=== PATIENT | male | born 1970 | race Caucasian/White ===

== ENCOUNTER 2024-01-24 17:22 | Inpatient (IN) ==
--- NOTE | 2024-01-24 17:31 | Emergency Department Note ---
Impression & Plan Atrial fibrillation with RVR, Headache ED Provider Note NAME: FREDIS BILLY AGE: 53 SEX: M : 1970 ARRIVES VIA: Walk-In INFORMANT: Patient, ED PROVIDER(S): Rodolfo Urbina MD CHIEF COMPLAINT: Headache, palpitations MEDICAL DECISION MAKING: Patient presents due to concern for headache as well as possible erratic heart rate. IV was established and blood work was obtained. Initial EKG did show the patient is in A-fib with RVR. Patient was ordered IV Lopressor 5 mg every 5 minutes in hopes of lowering his rate to the 100s. I did message on-call radiologist Dr. Segovia as the patient had complained of potentially worst headache and concern for subarachnoid hemorrhage. He stated that a noncontrast CT would be sufficient does not require angiographies. Patient did have improvement in his heart rate into the low 100s. The patient was feeling well. Patient still declined any medication for his headache. White count of 12 hemoglobin slightly elevated at 18.6. He did receive IV fluids. Kidney function is unremarkable. Mild elevation in AST and ALT. TSH is elevated but normal free T4. Troponin negative. Chest x-ray does not show evidence of pneumonia or pneumothorax and CT of the head is negative. Heparin was ordered. I did speak the on-call hospital service after informing the patient of the findings and recommendations. Patient was comfortable with plan of care and the patient was admitted by [facility]. Critical Care: I have personally spent 42 minutes of critical care time in direct management of this patient. This includes bedside care, interpretation of diagnostic studies, and testing, discussion with consultants, patient, and family members, and other require inpatient management activities. This 42 minutes is in excess of all separately billable procedures. Discussion w/ other healthcare providers: Dr. Segovia with radiology Cherie Vicente PA-C with Dr. Blanca inpatient medicine [facility] Prior /Outside records reviewed: None Differential diagnosis: A-fib, migraine headache, tension headache, dehydration, meningitis, sinusitis, CO exposure, ICH, infection, tumor, sinus thrombosis as well as others were considered. Diagnostics, as interpreted by me: ECG: A-fib with RVR, ventricular rate of 145, normal QRS duration, normal axis. No ST elevations. Cardiac monitoring: An order was placed for continuous cardiac monitoring. The monitor shows a rate of 142 with irregularly irregular and tachycardic rhythm. Patient was placed on pulse oximetry Medical decision rules: CHADS2 vascular score Imaging studies: I informally interpreted the patient's chest x-ray does not show obvious pneumonia or pneumothorax with formal report to follow. HPI: Patient presents due to concern for headache and erratic irregular heartbeat. The patient states that he developed headache around 9 PM last evening and states that he does live with chronic headaches but it was one of the worst that he has ever experienced. Currently about a 3 out of 10 but peaked around 8 or 9 out of 10. The patient states that the pain was on the top of the head. Nonradiating. Patient denies any falls or trauma does not use any blood thinning medications. Patient denies any chest pains or shortness of breath. The patient does report that his took his pulse and thought that it was erratic and thus presented here for further evaluation and treatment. PAST MEDICAL HISTORY: See Below PAST SURGICAL HISTORY: See Below SOCIAL HISTORY: See Below HOME MEDICATIONS: See Below ALLERGIES: See Below VITALS: See Below PHYSICAL EXAMINATION: GENERAL: NAD, non-toxic. EYE EXAM: Normal conjunctiva. PERRL, no anisocoria and EOM's grossly intact w/o pain. OROPHARYNX: Moist mucus membranes, grossly normal dentition. NECK: Trachea midline, no stridor. No nuchal rigidity. LUNGS: Clear to auscultation. Normal chest wall mechanics. HEART: Tachycardic and irregularly irregular, no MRG. ABDOMEN: Abdomen soft, non-tender, no masses, no rebound or guarding. BACK: No CVA TTP. SKIN: No rashes and no bruising. UPPER EXTREMITIES: Upper extremities are grossly normal. LOWER EXTREMITIES: Grossly normal, no edema. NEURO EXAM: A&O x3, cranial nerves II-XII grossly intact, normal speech, moves all 4 extremities. [id number], no drift and no sensory deficits. Good [id number]. Past Med/Surg History Problem List (Updated 01/24/24 @ 22:44 by Rodolfo Urbina MD) NAFLD (nonalcoholic fatty liver disease) Ascending aorta enlargement Nonobstructive atherosclerosis of coronary artery Chronic headache CKD (chronic kidney disease), stage III Headache (Acute) Atrial fibrillation with RVR (Acute) Dyslipidemia Medical History Fatty liver Encounter for pre-operative examination Paresthesia CKD (chronic kidney disease) stage III Obesity Chronic back pain neck, no ROM limitations GERD (gastroesophageal reflux disease) Surgical History Neck mass LIPOMA REMOVED History of arthroscopy Family History Father Family history of diabetes mellitus Social History Smoking Status: Never smoker Second Hand Exposure: No; Do You Dip or Chew Tobacco: No; Tobacco Cessation Education Requested by Patient: No Hx Alcohol Use: No Hx Substance Use: No Preferred Language: Yakut Communication Ability: Effective Silk Screener Required: No Beliefs That Will Affect Care: None Current Living Situation: Spouse Current Living Situation Comment: lives at home w/ Other Information That Helps Us Care for You: No Feels Safe at Home: Yes Safety Concerns: Feels Safe At This Time Assistive Devices: None Allergies Allergies Allergy/AdvReac Type Severity Reaction Status Date / Time naproxen [From Aleve] Allergy Intermediate mouth/finger/toes Verified 01/24/24 17:42 tingling, watery eyes Penicillins Allergy Unknown Unknown, Verified 01/24/24 17:42 childhood reaction Home Meds Home Medications Medication Instructions Recorded Confirmed No Known Home Medications 01/24/24 01/24/24 Results & Data (ED) Vital Signs Vital Signs - 24 hr 01/24/24 17:24 01/24/24 17:42 01/24/24 17:49 Temperature 36.1 C L Temperature Source Temporal Artery Scan Pulse Rate 83 147 H 145 H Pulse Rate from SpO2 Sensor Respiratory Rate 20 Blood Pressure 178/110 H 174/114 H Blood Pressure Mean 132 Pulse Oximetry 95 Oxygen Delivery Method Room Air Sepsis Recent Fever Within 48 Hours No Sepsis New/Unexplained Change in Mental Status N/A Sepsis Action Taken by Nursing No Action Required 01/24/24 17:54 01/24/24 18:08 01/24/24 18:16 Temperature Temperature Source Pulse Rate 128 H 124 H 116 H Pulse Rate from SpO2 Sensor 84 106 H Respiratory Rate 14 25 H Blood Pressure 113/61 101/77 Blood Pressure Mean 82 Pulse Oximetry 94 95 Oxygen Delivery Method Room Air Sepsis Recent Fever Within 48 Hours Sepsis New/Unexplained Change in Mental Status Sepsis Action Taken by Nursing 01/24/24 18:38 Temperature Temperature Source Pulse Rate 119 H Pulse Rate from SpO2 Sensor Respiratory Rate Blood Pressure 117/75 Blood Pressure Mean Pulse Oximetry Oxygen Delivery Method Sepsis Recent Fever Within 48 Hours Sepsis New/Unexplained Change in Mental Status Sepsis Action Taken by Retirement Medications Current Medication List: was personally reviewed by me Laboratory Data Attestation: I reviewed the patient's lab results. 01/24/24 17:38 01/24/24 17:38 Lab Results 01/24/24 Range/Units 17:38 WBC 12.21 H (4.8-10.8) K/ul RBC 6.54 H (4.70-6.10) M/uL Hgb 18.6 H (14.0-18.0) g/dl Hct 56.4 H (42.0-52.0) % MCV 86.2 (80.0-100.0) fL MCH 28.4 (25.0-34.0) pg MCHC 33.0 (32.0-36.0) g/dL RDW Std Deviation 38.4 (36.4-46.3) fL RDW Coeff of Leatha 12.4 (11.5-14.5) % Plt Count 250 (130-400) K/uL MPV 11.0 (9.4-12.4) fL Immature Gran % (Auto) 0.3 % Neut % (Auto) 56.7 % Lymph % (Auto) 32.8 % Rosebud % (Auto) 8.9 % Eos % (Auto) 0.8 % Baso % (Auto) 0.5 % Neut # (Auto) 6.92 H (1.40-6.50) K/uL Lymph # (Auto) 4.00 H (1.20-3.40) K/uL Rosebud # (Auto) 1.09 H (0.11-0.59) K/uL Eos # (Auto) 0.10 (0.00-0.50) K/uL Baso # (Auto) 0.06 (0.00-0.20) K/uL Immature Gran # (Auto) 0.04 (0.01-0.20) K/uL PT 11.2 (9.0-12.0) Seconds INR 1.0 (0.9-1.1) APTT 29 (21-31) Seconds PTT Ratio 1.1 Sodium 138 (136-145) mmol/L Potassium 3.8 (3.5-5.1) mmol/L Chloride 100 (98-107) mmol/L Carbon Dioxide 31 (21-32) mmol/L Anion Gap 7 (3-11) BUN 11 (6-23) mg/dl Creatinine 1.38 (0.6-1.4) mg/dl Est Cr Clr Drug Dosing 72.0 ml/min Est GFR ( Amer) 67.2 ml/min Est GFR (Non-Af Amer) 58.0 ml/min BUN/Creatinine Ratio 8.0 L (10-20) Glucose 96 (70-99(Fasting)) mg/dl Calcium 9.7 (8.6-10.3) mg/dl Magnesium 1.8 (1.7-2.4) mg/dl Total Bilirubin 0.8 (0.2-1.0) mg/dl AST 52 H (13-39) U/L ALT 128 H (7-52) U/L Alkaline Phosphatase 87 (34-104) U/L Troponin I High Sens 10.7 (0-20) pg/ml Total Protein 8.2 (6.0-8.3) gm/dl Albumin 4.7 (3.4-5.0) gm/dl Globulin 3.5 (2.5-4.0) gm/dl Albumin/Globulin Ratio 1.3 (0.9-2) TSH 5.216 H (0.300-4.500) uIu/ml Free T4 1.01 (0.61-1.60) ng/dl Administered Medications Heparin Sodium/Dextrose (Heparin Sodium/Dextrose) 25,000 units in 500 mls @ 20 mls/hr IV .Q24H SHALINI; Protocol Stop: 02/23/24 19:14 Last Admin: 01/24/24 19:53 Dose: 1,000 units/hr, 20 mls/hr Documented By: EMB Co-signed By: JENNY Sodium Chloride (Nss) 1,000 mls @ 125 mls/hr IV .Q8H SHALINI Stop: 01/25/24 14:06 Last Admin: 01/24/24 22:30 Dose: 125 mls/hr Documented By: MPC Discontinued Medications Heparin Sodium/Dextrose (Heparin Iv Adult Wt-Based Low-Dose *No* Initial Bolus Protocol) 1 each IV ONE STA; Protocol Stop: 01/24/24 19:01 Last Admin: 01/24/24 20:48 Dose: Not Given Documented By: MAR Sodium Chloride (Nss) 500 mls @ 999 mls/hr IV .Q31M STA Stop: 01/24/24 18:20 Last Infusion: 01/24/24 18:32 Dose: Infused Documented By: Admin: 01/24/24 18:06 Dose: 999 mls/hr Documented By: LISAK Magnesium Sulfate/Dextrose (Magnesium Sulfate / D5w) 1 gm in 100 mls @ 50 mls/hr IV ONE ONE Stop: 01/24/24 21:10 Last Infusion: 01/24/24 22:08 Dose: Infused Documented By: Admin: 01/24/24 19:44 Dose: 50 mls/hr Documented By: EMB Sodium Chloride (Nss) 1,000 mls @ 999 mls/hr IV .Q1H1M ONE Stop: 01/24/24 20:32 Last Infusion: 01/24/24 20:48 Dose: Infused Documented By: Admin: 01/24/24 19:44 Dose: 999 mls/hr Documented By: EMB Metoprolol Tartrate (Metoprolol Tartrate 1 Mg/Ml Vial) Confirm Administered Dose 5 mg IV .STK-MED ONE Stop: 01/24/24 17:48 Last Admin: 01/24/24 17:49 Dose: 5 mg Documented By: LISAK Metoprolol Tartrate (Metoprolol Tartrate 1 Mg/Ml Vial) 5 mg IV Q5M PRN PRN Reason: Tachycardia Stop: 02/23/24 17:49 Last Admin: 01/24/24 18:38 Dose: 5 mg Documented By: Admin: 01/24/24 18:08 Dose: 5 mg Documented By: LISAK Potassium Chloride (Potassium Chloride Crtab 20 Meq Tabcr) 40 meq PO ONE ONE Stop: 01/24/24 19:12 Last Admin: 01/24/24 19:44 Dose: 40 meq Documented By: EMB Imaging Data Radiologist's Impression: Chest X-Ray 01/24/24 17:50 SINGLE VIEW CHEST CLINICAL HISTORY: Dysrhythmia FINDINGS: An AP, portable, upright chest radiograph is compared to study dated 04/01/2020 and correlated with chest CT dated 04/26/2020. The cardiomediastinal silhouette is top normal for projection. The lungs and pleural spaces are clear. No pneumothorax is seen. The bony thorax is grossly intact. IMPRESSION: No active disease in the chest. ACT 112: Negative or not required by law. Electronically signed by: Glenn Segovia M.D. 01/24/2024 6:[address] 01/24/24 17:50 CT SCAN OF THE BRAIN WITHOUT IV CONTRAST CLINICAL HISTORY: Headache. COMPARISON STUDY: CT of the brain dated 12/25/2019. TECHNIQUE: Unenhanced axial CT scan of the brain is performed from the vertex to the skull base. A dose lowering technique was utilized adhering to the principles of ALARA. CT DOSE: 547.75 mGy.cm FINDINGS: Brain parenchyma: The brain parenchyma is normal in appearance. There is no hemorrhage, mass effect, or evidence of acute territorial ischemia by CT criteria. Ashby-white matter differentiation is preserved. No extra-axial fluid collection is seen. Ventricles, sulci, cisterns: Normal in configuration. Intracranial vasculature: There is atherosclerotic calcification of the cavernous carotid arteries. Calvarium: Unremarkable. Soft tissues: Soft tissue thickening in the occipital scalp is similar to the 2020 examination. Sinuses and mastoids: Trace mucosal thickening is noted in the right sphenoid sinus. The remaining visualized paranasal sinuses are clear. The mastoid air cells are well pneumatized. Orbits: The bony orbits are grossly intact. IMPRESSION: There is no hemorrhage, mass effect, or evidence of acute territorial ischemia by CT criteria. ACT 112: Negative or not required by law. Electronically signed by: Glenn Segovia M.D. 01/24/2024 6:05 PM Discharge Plan Visit Data Chief Complaint: Headache Stated Complaint: HEADACHE, NAUSEA, IRRATIC PULSE ED Provider: Rodolfo Urbina Discharge Problem: Atrial fibrillation with RVR, Headache Patient Disposition: Admitted As Inpatient Discharge Instructions Interventions: ED Discharge Assessment Last Done: 01/24/24 21:28 Discharge Problem: Headache Qualifiers: Headache type: unspecified
[2024-01-24] MEDS: METOPROLOL TARTRATE 1 MG/ML VIAL IV ONE (17:49)
[2024-01-24] MEDS: SODIUM CHLORIDE 0.9% 500 ML IV STA (18:06)
[2024-01-24 18:07] LABS: Basophils # (auto) 0.06 K/uL (0.00-0.20); Basophils % (auto) 0.5 %; Eosinophils % (auto) 0.8 %; Hematocrit (blood only) 56.4 % (42.0-52.0); Hemoglobin 18.6 g/dl (14.0-18.0); Immature Granulocytes # (auto) 0.04 K/uL (0.01-0.20); Immature Granulocytes % (auto) 0.3 %; Lymphocytes % (auto) 32.8 %; Mean Corpuscular Hemoglobin 28.4 pg (25.0-34.0); Mean Corpuscular Volume 86.2 fL (80.0-100.0); Monocytes # (auto) 1.09 K/uL (0.11-0.59); Monocytes % (auto) 8.9 %; Neutrophils # (auto) 6.92 K/uL (1.40-6.50); Neutrophils % (auto) 56.7 %; Platelet Count 250 K/uL (130-400); RDW Coefficient of Variation 12.4 % (11.5-14.5); RDW Standard Deviation 38.4 fL (36.4-46.3); Red Blood Count 6.54 M/uL (4.70-6.10); White Blood Count 12.21 K/ul (4.8-10.8)
--- NOTE | 2024-01-24 18:07 | CT Scan Report ---
CT SCAN OF THE BRAIN WITHOUT IV CONTRAST CLINICAL HISTORY: Headache. COMPARISON STUDY: CT of the brain dated 12/25/2019. TECHNIQUE: Unenhanced axial CT scan of the brain is performed from the vertex to the skull base. A d ose lowering technique was utilized adhering to the principles of ALARA. CT DOSE: 547.75 mGy.cm FINDINGS: Brain parenchyma: The brain parenchyma is normal in appearance. There is no hemorrhage, mass effect, or evidence of acute territorial ischemia by CT criteria. Ashby-white matter differentiation is preser jennifer. No extra-axial fluid collection is seen. Ventricles, sulci, cisterns: Normal in configuration. Intracranial vasculature: There is atherosclerotic calcification of the cavernous carotid arteries. Calvarium: Unremarkable. Soft tissues: Soft tissue thickening in the occipital scalp is similar to the 2020 examination. Sinuses and mastoids: Trace mucosal thickening is noted in the right sphenoid sinus. The remaining vi sualized paranasal sinuses are clear. The mastoid air cells are well pneumatized. Orbits: The bony orbits are grossly intact. IMPRESSION: There is no hemorrhage, mass effect, or evidence of acute territorial ischemia by CT augie parker. ACT 112: Negative or not required by law. Electronically signed by: Glenn Segovia M.D. 01/24/2024 6:05 PM
[2024-01-24] MEDS: METOPROLOL TARTRATE 1 MG/ML VIAL IV PRN (18:08)
--- NOTE | 2024-01-24 18:21 | XRay Report ---
SINGLE VIEW CHEST CLINICAL HISTORY: Dysrhythmia FINDINGS: An AP, portable, upright chest radiograph is compared to study dated 04/01/2020 and correlat ed with chest CT dated 04/26/2020. The cardiomediastinal silhouette is top normal for projection. The lungs and pleural spaces are clear. No pneumothorax is seen. The bony thorax is grossly intact. IMPRESSION: No active disease in the chest. ACT 112: Negative or not required by law. Electronically signed by: Glenn Segovia M.D. 01/24/2024 6:19 PM
[2024-01-24 18:25] LABS: Albumin Globulin Ratio 1.3 (0.9-2); Albumin Level 4.7 gm/dl (3.4-5.0); Bilirubin,Total 0.8 mg/dl (0.2-1.0); Calcium 9.7 mg/dl (8.6-10.3); Est GFR (African American) 67.2 ml/min; Globulin 3.5 gm/dl (2.5-4.0); Magnesium 1.8 mg/dl (1.7-2.4); Potassium 3.8 mmol/L (3.5-5.1); Total Protein 8.2 gm/dl (6.0-8.3)
[2024-01-24 18:31] LABS: Troponin I High Sensitivity 10.7 pg/ml (0-20)
[2024-01-24 18:40] LABS: Thyroid Stimulating Hormone 5.216 uIu/ml (0.300-4.500)
[2024-01-24 18:57] LABS: Partial Thromboplastin Ratio 1.1; Partial Thromboplastin Time 29 Seconds (21-31); Prothrombin Time 11.2 Seconds (9.0-12.0)
[2024-01-24 19:16] LABS: T4 Free Thyroxine 1.01 ng/dl (0.61-1.60)
--- NOTE | 2024-01-24 19:18 | History & Physical Report ---
Date of Service January 24, 2024 Assessment & Plan (1) Atrial fibrillation with RVR: Plan: Patient is 53 year old male with PMH dyslipidemia, non-obstructive CAD, NAFLD, enlarged ascending thoracic aorta last measured 4.[address] imaging, CKD III presented to ER with c/o ESTRADA and palpitations since last night. EKG: atrial fibrillation RVR nonspecific ST changes Troponin: negative. TSH: 5.2. WBC: 12, H/H: 18.6/56 CXR: no infiltrate In ER patient afebrile, P: 147, R: 20, BP 178/110, 95% on room air. In ER given 500ml NSS, 3 doses (total 15mg metoprolol tartrate IV) with repeat P: 114, now SBPs 90's-100's Patient states feeling less palpitations now, is A&O x 3 and jovial Give additional 1L NSS now IV heparin started Continue IV heparin Monitor on telemetry Start metoprolol tartrate po Echo NPO midnight Cardiology consult CBC, BMP in am (2) Headache: Plan: History chronic ESTRADA's Followed with neurology in past and was diagnosed with primary exertional ESTRADA and migraine ESTRADA and advised to avoid medication overuse and attempt lifestyle modifications Last night describes ESTRADA worse than his typical daily ESTRADA Currently rates 2/10 on pain scale In ER CT head without acute intracranial abnormality (3) CKD (chronic kidney disease), stage III: Plan: Cr: 1.38, GFR 58. ( 12/26/2020: Cr: 1.4, GFR: 59) Monitor renal functions (4) Dyslipidemia: Plan: History dyslipidemia. Prior chose lifestyle modification attempts 12/26/2020: Triglycerides: 213, total cholesterol: 241, LDL: 160, HDL: 38 Lipid panel in am (5) Nonobstructive atherosclerosis of coronary artery: (6) Ascending aorta enlargement: Plan: Cardiac CT 05/10/2020: In the proximal LAD there is a small area of focal calcified plaque resulting in no significant luminal stenosis. In the mid LAD, there is an area of focal calcified plaque resulting in luminal stenosis of 20%. The left main, circumflex, and right coronary arteries are normal without evidence of atherosclerotic plaque or luminal stenosis. The right ventricular chamber size is dilated to a [id number] degree on qualitative assessment. The interatrial septum is intact without evidence of atrial septal defect. The aortic root and proximal ascending aorta are mildly dilated. Measurements:Aortic root at the level of the sinus of Valsalva: 42 x 41 x 39 mm. Aorta at the level the sinotubular junction: 33 x 37 mm. (7) NAFLD (nonalcoholic fatty liver disease): Plan: AST: 52, ALT: 128, Alk Phos: 87. (12/26/2020: AST: 52, ALT: 127, alk phos: 75, T. bili: 0.6) 08/03/14 abd: hepatic steatosis DVT Prophylaxis On IV Heparin Admit PCU Full Code as per discussion with pt Previously followed with [facility] PCP's, hasn't been seen for couple years. Pt was seen and care coordinated with Dr Blanca. See addendum I spent a total of 65 minutes reviewing notes, outpatient records, labs, medication, coordinating, documenting and providing care for this patient excluding time spent in the performance of separately billed services. History of Present Illness Chief Complaint: ESTRADA, palpitations Primary Care Provider: NO PCP Patient is 53 year old male with PMH dyslipidemia, non-obstructive CAD, NAFLD, enlarged ascending thoracic aorta last measured 4.[address] imaging, CKD III presented to ER with c/o ESTRADA and palpitations since last night. History obtai stacy from patient and patient's and outpatient chart review. Patient states last night around 19:00 started with ESTRADA. He had some nausea and dry heaving last night. Last night felt ESTRADA worse than his usual ESTRADA's but states he didn't think much of it as he will sometimes have more severe ESTRADA's. Has history recurrent ESTRADA's for past 4 years. He states has almost daily ESTRADA that he describes as mild usually. Doesn't take anything for them. Sometimes has floaters. Sometimes he has nausea with the ESTRADA's. Had followed up with neurology in past with testing and was diagnosed with primary exertional ESTRADA and migraine ESTRADA. 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 He denies neck pain. Patient reports when went to bed last night he thought he could feel his heart beating but didn't really bother him much. Today ESTRADA continued and he felt some palpitations and his took his pulse and noticed it was irregular so came to ER for evaluation. Had semi solid BM last night. States has soda or tea daily. But yesterday had 5 caffeinated drinks. Denies ETOH use. Denies dizziness, lightheadedness, syncope, CP, SOB, neck pain, fever/chills, diaphoresis, vomiting, syncope, vision changes, CP, SOB, orthopnea, cough, sore throat, rhinorrhea, abdominal pain, paresthesias, weakness, extremity edema, rashes, urinary symptoms. Allergies Allergy/AdvReac Type Severity Reaction Status Date / Time naproxen [From Aleve] Allergy Intermediate mouth/finger/toes Verified 01/24/24 17:42 tingling, watery eyes Penicillins Allergy Unknown Unknown, Verified 01/24/24 17:42 childhood reaction Home Medications Medication Instructions Recorded Confirmed Type No Known Home Medications 01/24/24 01/24/24 History Past Med/Surg History Problem List (Updated 01/24/24 @ 19:59 by Cherie Lorenzo PA-C) NAFLD (nonalcoholic fatty liver disease) Ascending aorta enlargement Nonobstructive atherosclerosis of coronary artery Chronic headache CKD (chronic kidney disease), stage III Headache Atrial fibrillation with RVR Dyslipidemia Medical History Fatty liver Encounter for pre-operative examination Paresthesia CKD (chronic kidney disease) stage III Obesity Chronic back pain neck, no ROM limitations GERD (gastroesophageal reflux disease) Surgical History Neck mass LIPOMA REMOVED History of arthroscopy Family History Father Family history of diabetes mellitus Social History Smoking Status: Never smoker Second Hand Exposure: Yes (MOTHER SMOKED); Do You Dip or Chew Tobacco: No; Hx Alcohol Use: No Hx Substance Use: No Preferred Language: Serbian Communication Ability: Effective Re Recording Mixer Required: No Beliefs That Will Affect Care: None Current Living Situation: Spouse and Family Feels Safe at Home: Yes Assistive Devices: Glasses Review of Systems Review of Systems: All systems reviewed & are unremarkable except as noted in HPI & below Physical Exam Physical Exam: PE per Dr Blanca Results & Data Results & Data Vital Signs (Past 12 Hours) Vital Signs Temp Pulse Resp BP Pulse Ox O2 Del Method 01/24/24 18:38 119 H 117/75 01/24/24 18:16 116 H 25 H 101/77 95 Room Air 01/24/24 18:08 124 H 113/61 01/24/24 17:54 128 H 14 94 01/24/24 17:49 145 H 174/114 H 01/24/24 17:42 147 H 01/24/24 17:24 36.1 C L 83 20 178/110 H 95 Room Air Laboratory Results Short CBC 01/24/24 Range/Units 17:38 WBC 12.21 H (4.8-10.8) K/ul Hgb 18.6 H (14.0-18.0) g/dl Hct 56.4 H (42.0-52.0) % Plt Count 250 (130-400) K/uL BMP 01/24/24 17:38 Sodium 138 Potassium 3.8 Chloride 100 Carbon Dioxide 31 BUN 11 Creatinine 1.38 Glucose 96 Calcium 9.7 Liver Function 01/24/24 Range/Units 17:38 Total Bilirubin 0.8 (0.2-1.0) mg/dl AST 52 H (13-39) U/L ALT 128 H (7-52) U/L Alkaline Phosphatase 87 (34-104) U/L Albumin 4.7 (3.4-5.0) gm/dl Diagnostic Findings Chest X-Ray 01/24/24 17:50 SINGLE VIEW CHEST CLINICAL HISTORY: Dysrhythmia FINDINGS: An AP, portable, upright chest radiograph is compared to study dated 04/01/2020 and correlated with chest CT dated 04/26/2020. The cardiomediastinal silhouette is top normal for projection. The lungs and pleural spaces are clear. No pneumothorax is seen. The bony thorax is grossly intact. IMPRESSION: No active disease in the chest. ACT 112: Negative or not required by law. Electronically signed by: Glenn Segovia M.D. 01/24/2024 6:[address] 01/24/24 17:50 CT SCAN OF THE BRAIN WITHOUT IV CONTRAST CLINICAL HISTORY: Headache. COMPARISON STUDY: CT of the brain dated 12/25/2019. TECHNIQUE: Unenhanced axial CT scan of the brain is performed from the vertex to the skull base. A dose lowering technique was utilized adhering to the principles of ALARA. CT DOSE: 547.75 mGy.cm FINDINGS: Brain parenchyma: The brain parenchyma is normal in appearance. There is no hemorrhage, mass effect, or evidence of acute territorial ischemia by CT criteria. Ashby-white matter differentiation is preserved. No extra-axial fluid collection is seen. Ventricles, sulci, cisterns: Normal in configuration. Intracranial vasculature: There is atherosclerotic calcification of the cavernous carotid arteries. Calvarium: Unremarkable. Soft tissues: Soft tissue thickening in the occipital scalp is similar to the 2020 examination. Sinuses and mastoids: Trace mucosal thickening is noted in the right sphenoid sinus. The remaining visualized paranasal sinuses are clear. The mastoid air cells are well pneumatized. Orbits: The bony orbits are grossly intact. IMPRESSION: There is no hemorrhage, mass effect, or evidence of acute territorial ischemia by CT criteria. ACT 112: Negative or not required by law. Electronically signed by: Glenn Segovia M.D. 01/24/2024 6:05 PM Supervising Physician Co-Signing Physician Notes Patient is a 53-year-old male with history of dyslipidemia, GERD, CKD stage III, nonalcoholic fatty liver disease, mild coronary artery disease, aortic root enlargement as per record who currently is not on any home medications presents with history of chronic headache which was worse yesterday evening associated with dry heaving and palpitations. 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 He started to notice having palpitations yesterday night which have been persistent and was noted to have irregular rhythm by his family and so came to ED today for further evaluation. Patient denies any chest pain, vomiting, dizziness, shortness of breath, diarrhea, abdominal pain, fever, chills. He was found to be in A-fib RVR, hypertensive urgency while in ED. He denies having irregular heart rhythms in the past. He also denies any smoking, alcohol, but admits to have caffeine drinks on a daily basis. I personally reviewed blood work and imaging studies. CT head, chest x-ray showed no acute process. TSH is mildly elevated, free T4 is normal. Noted WBC 12.2 K, hemoconcentration with hemoglobin 18.6, HCT 56.4. Physical Exam: Vitals signs as noted above General Appearance: Well-built, nourished, no apparent distress Head: normocephalic, Atraumatic Eyes: normal inspection, EOMI Neck: supple, Trachea midline, no neck rigidity Respiratory/Chest: Normal breath sounds, CTA, No accessory muscle use Cardiovascular: Irregularly irregular, tachycardia, No murmur Abdomen/GI:Soft, Non tender, protuberant, bowel sounds present Extremities/Musculoskeletal:normal inspection, trace pedal edema Neurologic/Psych:AAOX3, grossly no focal neurological deficits Skin: normal color, warm A-fib RVR Hypertensive urgency--situational Abnormal LFTs Chronic headache likely migraine Abnormal thyroid function test (elevated TSH, normal free T4) Clinically dehydrated Started on IV fluids, IV heparin Replete electrolytes to keep potassium>4, magnesium>2 Start on metoprolol titrate 12.5 mg every 6 hours, IV Lopressor as needed Obtain resting echo, consulted cardiology Monitor LFTs Will need repeat thyroid function test as outpatient N.p.o. after midnight Monitor blood pressure, adjust medications as needed I personally interviewed and examined at bedside. Patient's care is coordinated with Cherie Lorenzo PA-C. I have reviewed the advanced practitioner's documentation, and I agree with plan of care. Please refer to the documentation above for details of patient's presentation and for discussion of other issues. I spent a total [id number] coordinating, documenting, and providing care for this patient excluding time spent in the performance of separately billed services.
[2024-01-24] MEDS: SODIUM CHLORIDE 0.9% 1,000 ML IV ONE (19:44)
[2024-01-24] MEDS: MAGNESIUM SULFATE / D5W 1 GM/100 ML BAG IV ONE (19:44)
[2024-01-24] MEDS: POTASSIUM CHLORIDE CRTAB 20 MEQ TABCR PO ONE (19:44)
[2024-01-24] MEDS: HEPARIN SODIUM/DEXTROSE 25,000 UNITS/500 ML BAG IV SCH (19:53)
[2024-01-24] MEDS: Heparin IV Adult Wt-Based Low-Dose *NO* INITIAL Bolus Protocol IV STA (20:48)
[2024-01-24] MEDS ORDERED: ACETAMINOPHEN 325 MG TAB PO PRN (22:07)
[2024-01-24] MEDS ORDERED: METOPROLOL TARTRATE 1 MG/ML VIAL IV PRN (22:07)
[2024-01-24] MEDS ORDERED: POLYETHYLENE (MIRALAX) 17 GM PACK PO PRN (22:07)
[2024-01-24] MEDS: SODIUM CHLORIDE 0.9% 1,000 ML IV SCH (22:30)
[2024-01-24] MEDS: METOPROLOL TARTRATE 25 MG TAB PO SCH (23:16)
[2024-01-24] MEDS: PANTOprazole 40 MG TAB PO SCH (23:16)
[2024-01-25 02:33] LABS: Albumin Globulin Ratio 1.4 (0.9-2); Albumin Level 3.7 gm/dl (3.4-5.0); BUN Creatinine Ratio 10.3 (10-20); Bilirubin,Total 0.7 mg/dl (0.2-1.0); Calcium 8.9 mg/dl (8.6-10.3); Chol HDL Ratio 5.6 (0-5); Creatinine Clr Calc Pharmacy 101.3 ml/min; Est GFR (African American) 82.9 ml/min; Est GFR (Non-African American) 71.5 ml/min; Globulin 2.6 gm/dl (2.5-4.0); Total Protein 6.3 gm/dl (6.0-8.3)
[2024-01-25 02:39] LABS: Hematocrit (blood only) 48.6 % (42.0-52.0); Hemoglobin 16.6 g/dl (14.0-18.0); Mean Corpuscular Hemoglobin 28.8 pg (25.0-34.0); Mean Corpuscular Hgb Conc 34.2 g/dL (32.0-36.0); Mean Corpuscular Volume 84.4 fL (80.0-100.0); Mean Platelet Volume 11.6 fL (9.4-12.4); Platelet Count 196 K/uL (130-400); RDW Coefficient of Variation 12.2 % (11.5-14.5); RDW Standard Deviation 37.1 fL (36.4-46.3); Red Blood Count 5.76 M/uL (4.70-6.10); White Blood Count 9.92 K/ul (4.8-10.8)
[2024-01-25 02:44] LABS: ANTI-Xa, UFH(UnfractionatedHep 0.14 IU/ml (0.3-0.7)
[2024-01-25] MEDS: HEPARIN SOD (PORCINE) 1000 UNIT/ML IV ONE (03:58)
--- NOTE | 2024-01-25 07:42 | Electrocardiogram Report ---
Test Reason : Blood Pressure : */* mmHG Vent. Rate : 145 BPM Atrial Rate : * BPM P-R Int : * ms QRS Dur : 96 ms QT Int : 312 ms P-R-T Axes : * 8 132 degrees QTcB Int : 484 ms Atrial fibrillation with rapid ventricular response Nonspecific ST and T wave abnormality Abnormal ECG When compared with ECG of 01-Apr-2020 21:23, Atrial fibrillation has replaced Sinus rhythm Vent. rate has increased by 52 bpm Non-specific change in ST segment in Inferior leads ST now depressed in Lateral leads Confirmed by Jenna Cota (Sonny) on 01/25/2024 7:42:10 AM Referred By: REFERRED SELF Confirmed By: Jenna Cota
--- NOTE | 2024-01-25 08:53 | Cardiology Consultation ---
Date of Consultation January 25, 2024 Assessment & Plan (1) Atrial fibrillation with RVR: (2) Hypertensive urgency: (3) Ascending aorta enlargement: Plan Patient admitted with palpitations, HTN diagnosed with Afib RVR. Duration unknown. 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 HS troponin unremarkable. Echo with mild global hypokinesis with LVEF 50-55% (afib RVR during echo) Started on IV heparin for anticoagulation. [id number] score of 1-2 (HTN and mild CAD/aortic atherosclerosis). Will need transitioned to Eliquis 5 mg BID prior to discharge Metoprolol initiated upon arrival. Rates remain elevated this morning. Metoprolol succinate 50 mg twice perday Ongoing rate control strategy recommended for now and after 4 weeks of anticoagulation can attempt CV. However, if rates fail to improve today with titration of metoprolol, consider DARA/CV in the morning. Will make NPO BP trending downward with BB. May need additional antihypertensive therapy with HUY/ARB. Monitor. Further recommendations pending further discussion and evaluation with Dr. Thurston. Case discussed with Dr. Thurston I spent a total of 60 minutes on the date of service in preparation, delivery, and documentation of the care provided to this patient, excluding any time spent in the performance of separately billed services. Ning Farrell PA-C Department of Cardiology, [facility] This chart was completed in part utilizing Speech Voice Recognition Software. Grammatical errors, random word insertions, pronoun errors, and incomplete sentences are an occasional consequence of this system due to software limitations, ambient noise, and hardware issues. Any formal questions or c oncerns about the content, text, or information contained within the body of this dictation should be directly addressed to the provider for clarification. Supervising Physician Co-Signing Physician Notes Patient was seen and personally examined. Full assessment and plan as outlined by advanced provider above. Care and management personally discussed and endorsed Patient with newly discovered atrial fibrillation after presenting to the emergency room with headache. Significant hypertension noted as well as atrial fibrillation with elevated ventricular response rate Duration uncertain but suspect extended duration. Patient unable to sense atrial fibrillation at this time despite elevated rates Echocardiogram with low normal LV function Plan: Change metoprolol to tartrate to metoprolol succinate 50 mg twice per day Okay to transition from heparin to Eliquis We will keep n.p.o. after midnight consider DARA cardioversion if rates not slowing Discussed atrial fibrillation in detail with patient and courses of management Will likely add ARB given aortic root enlargement and hypertension once blood pressure tolerance of increased beta-anthony assured I spent a total of 30 minutes on the date of service in preparation, delivery, and documentation of the care provided to this patient, excluding any time spent in the performance of separately billed services. History of Present Illness Reason for Consultation: Afib RVR Requesting Physician: Bel Houston Attending Physician: Dr. Thurston History of Present Illness Patient is a 53 year old male who presented to [facility] with complaints of palpitations. Found to have atrial fibrillation RVR. Patient reports not feeling well on Thursday. He had a severe headache (which is a chronic issue) and his BP was elevated. He also felt intermittent "fluttering" in his chest but denied chest pain or unusual dyspnea. No visual changes. Thursday he awakened with similar symptoms. He had to go to [place] and when he returned he had ongoing headache and HR was once again elevated. He came to the ER for evaluation. Found to have afib RVR with rates in the 120's. Started on IV heparin. HS troponin negative. Head CT was unremarkable. Started on metoprolol 12.5 mg q 6 hours. BP trending down overnight but heart rates remained elevated. Metoprolol increased this morning to 25 mg q 6 hours. At time of consult, patient resting in bed without acute complaints. Only has palpitations with ambulation and HR trends upward. No chest pain, dizziness, SOB. No history of significant anemia, GI bleeding. He had an echo this morning demonstrating mild global hypokinesis with LVEF 50- 55%. Mild LA enlargement. No significant valvular disease. Mildly enlarged aortic root. History includes: 1. Enlarged RV per past echo in 2020 - Negative PE work up, Only mild WADE 2. HTN - situational (not treated) 3. Mild non obstructive CAD per cardiac CT in 2020 4. Dyslipidemia (not treated) 5. NAFLD 6. Chronic migraine headaches - previous extensive work up without pathology. Thought to be related to prior football related concussions? Allergies Allergy/AdvReac Type Severity Reaction Status Date / Time naproxen [From Aleve] Allergy Intermediate mouth/finger/toes Verified 01/24/24 17:42 tingling, watery eyes Penicillins Allergy Unknown Unknown, Verified 01/24/24 17:42 childhood reaction Home Medications Medication Instructions Recorded Confirmed Type omeprazole 20 mg PO HS 01/24/24 01/24/24 History Patient History Medical History Fatty liver Encounter for pre-operative examination Paresthesia CKD (chronic kidney disease) stage III Obesity Chronic back pain neck, no ROM limitations GERD (gastroesophageal reflux disease) Surgical History Neck mass LIPOMA REMOVED History of arthroscopy Family History Father Family history of diabetes mellitus Social History Smoking Status: Never smoker Second Hand Exposure: No; Do You Dip or Chew Tobacco: No; Tobacco Cessation Education Requested by Patient: No Hx Alcohol Use: No Hx Substance Use: No Preferred Language: Guyanese Communication Ability: Effective Farm Instructor Required: No Beliefs That Will Affect Care: None Current Living Situation: Spouse Current Living Situation Comment: lives at home w/ Other Information That Helps Us Care for You: No Feels Safe at Home: Yes Safety Concerns: Feels Safe At This Time Assistive Devices: None Review of Systems Review of Systems: All systems reviewed & are unremarkable except as noted in HPI & below Physical Exam Constitutional: WD/WN, vitals as above well developed and + obese; no acute distress Neck: + thick neck Respiratory: normal respiratory effort Auscultation: no crackles, no rales and no rhonchi Cardiovascular: Rate/Rhythm: + tachycardic and + irregularly irregular Heart Sounds: no murmur Vessels: no JVD Extremities: no edema Gastrointestinal (Abdomen): normal bowel sounds, soft, nontender, no hepatosplenomegaly Skin: no rashes, warm and dry Psychiatric: A+Ox3, euthymic affect Results & Data Vital Signs (Past 12 Hours) Vital Signs Temp Pulse Pulse Resp BP Pulse Ox O2 Del Method 01/25/24 07:54 125 H 01/25/24 07:44 36.7 C 83 18 153/89 H 93 Room Air 01/25/24 03:10 36.8 C 63 20 110/80 93 Room Air 01/24/24 22:42 112 H 01/24/24 22:15 36.6 C 107 H 18 149/98 H 96 Room Air 01/24/24 21:20 120 H 18 115/95 96 Room Air Laboratory Results Cardiac Enzymes 01/24/24 01/25/24 Range/Units 17:38 01:51 AST 52 H 39 (13-39) U/L Troponin I High Sens 10.7 (0-20) pg/ml Coagulation 01/24/24 Range/Units 17:38 PT 11.2 (9.0-12.0) Seconds APTT 29 (21-31) Seconds Lipids 01/25/24 Range/Units 01:51 Triglycerides 195 H (0-150) mg/dl Cholesterol 222 H (0-200) mg/dl HDL Cholesterol 40 mg/dl Cholesterol/HDL Ratio 5.6 H (0-5) CBC 01/24/24 01/25/24 Range/Units 17:38 01:51 WBC 12.21 H 9.92 (4.8-10.8) K/ul RBC 6.54 H 5.76 (4.70-6.10) M/uL Hgb 18.6 H 16.6 (14.0-18.0) g/dl Hct 56.4 H 48.6 (42.0-52.0) % Plt Count 250 196 (130-400) K/uL Neut # (Auto) 6.92 H (1.40-6.50) K/uL Lymph # (Auto) 4.00 H (1.20-3.40) K/uL [place] # (Auto) 1.09 H (0.11-0.59) K/uL Eos # (Auto) 0.10 (0.00-0.50) K/uL Baso # (Auto) 0.06 (0.00-0.20) K/uL Comprehensive Metabolic Panel 01/24/24 01/25/24 Range/Units 17:38 01:51 Sodium 138 140 (136-145) mmol/L Potassium 3.8 4.0 (3.5-5.1) mmol/L Chloride 100 108 H (98-107) mmol/L Carbon Dioxide 31 25 (21-32) mmol/L BUN 11 12 (6-23) mg/dl Creatinine 1.38 1.16 (0.6-1.4) mg/dl Glucose 96 96 (70-99(Fasting)) mg/dl Calcium 9.7 8.9 (8.6-10.3) mg/dl AST 52 H 39 (13-39) U/L ALT 128 H 98 H (7-52) U/L Alkaline Phosphatase 87 67 (34-104) U/L Total Protein 8.2 6.3 D (6.0-8.3) gm/dl Albumin 4.7 3.7 (3.4-5.0) gm/dl Intake and Output 01/24/24 01/25/24 01/25/24 22:59 06:59 14:59 Intake Total 1600 / 2678.167 1078.167 / 2678.167 Balance 1600 / 2678.167 1078.167 / 2678.167 Intake: IV 1600 / 2678.167 1078.167 / 2678.167 Heparin Sodium/Dextrose 25,000 149 / 149 units In 500 ml @ 1,000 UNITS/ HR 20 mls/hr IV .Q24H [facility]IN[facility] Rx#: [id number] Magnesium Sulfate / D5w 1 gm In 100 / 100 100 ml @ 50 mls/hr IV ONE ONE Rx#:[id number] Sodium Chloride 0.9% 1,000 ml @ 1000 / 1929.167 929.167 / 1929.167 125 mls/hr IV .Q8H [facility] Rx#: [id number] Sodium Chloride 0.9% 500 ml @ 500 / 500 999 mls/hr IV .Q31M [facility] Rx#: [id number] Other: Other Intake Source Patient is NPO # Unmeasured Voids 1 Weight 119.748 kg 119.7 kg Weight Measurement Method Standing Scale Diagnostic Findings Telemetry reviewed: Atrial fibrillation with variable ventricular rates ranging 100-115 at rest, increasing to 120-130's with minimal exertion EKG reviewed from 01/25/24 at 5:51 AM: Atrial fibrillation with RVR at 110 bmp No acute ischemic changes EKG reviewed from 01/24/24 at 17:35: Afib with RVR at 145 bmp Non specific T wave abnormality in lateral leads Echo reviewed from today 01/25/24: Atrial fibrillation with elevated ventricular rates LV is normal in size Moderate concentric LVH Borderline global hypokinesis of the LV LVEF 50-55% LA is mildly dilated No significant valvular disease Borderline aortic root dilatation Chest X-Ray 01/24/24 17:50 SINGLE VIEW CHEST CLINICAL HISTORY: Dysrhythmia FINDINGS: An AP, portable, upright chest radiograph is compared to study dated 04/01/2020 and correlated with chest CT dated 04/26/2020. The cardiomediastinal silhouette is top normal for projection. The lungs and pleural spaces are clear. No pneumothorax is seen. The bony thorax is grossly intact. IMPRESSION: No active disease in the chest ACT 112: Negative or not required by law. Electronically signed by: Glenn Segovia M.D. 01/24/2024 6:[address] 01/24/24 17:50 CT SCAN OF THE BRAIN WITHOUT IV CONTRAST CLINICAL HISTORY: Headache. COMPARISON STUDY: CT of the brain dated 12/25/2019. TECHNIQUE: Unenhanced axial CT scan of the brain is performed from the vertex to the skull base. A dose lowering technique was utilized adhering to the principles of ALARA. CT DOSE: 547.75 mGy.cm FINDINGS: Brain parenchyma: The brain parenchyma is normal in appearance. There is no hemorrhage, mass effect, or evidence of acute territorial ischemia by CT criteria. [place]-white matter differentiation is preserved. No extra-axial fluid collection is seen. Ventricles, sulci, cisterns: Normal in configuration. Intracranial vasculature: There is atherosclerotic calcification of the cavernous carotid arteries. Calvarium: Unremarkable. Soft tissues: Soft tissue thickening in the occipital scalp is similar to the 2019 examination. Sinuses and mastoids: Trace mucosal thickening is noted in the right sphenoid sinus. The remaining visualized paranasal sinuses are clear. The mastoid air cells are well pneumatized. Orbits: The bony orbits are grossly intact. IMPRESSION: There is no hemorrhage, mass effect, or evidence of acute territorial ischemia by CT criteria. ACT 112: Negative or not required by law. Electronically signed by: Glenn Segovia M.D. 01/24/2024 6:05 PM Outside data: Prior outpatient echo 12/2020: Interpretation Summary The examination is adequate to evaluate the referral indication. The left ventricular cavity size is normal. The LV wall thickness is borderline increased (concentric). The qualitative LV ejection fraction is 55-59% (normal). Calculated LV ejection Fraction = 58% (bi-plane method of discs). The left ventricular diastolic function is mildly abnormal (grade I). The left atrium is normal sized (< 35 ml/m^2). The right ventricular cavity is mildly dilated. The right ventricular systolic function is normal as assessed by tricuspid annular plane systolic excursion (TAPSE) (normal >1.7 cm). The right ventricular systolic function is qualitatively normal. The proximal ascending thoracic aorta is mildly enlarged (4.5 cm). The aortic root is borderline enlarged (3.9 cm). Trivial tricuspid regurgitation is present. The signal is inadequate to calculate pulmonary artery systolic pressure. Normal IVC size and collapsability with inspiration ndicates a normal right atrial pressure of 3 mmHg. Compared to previous study dated 04/26/2020, no segmental left ventricular wall motion abnormality is now seen? right ventricular dimension and function appear unchanged. Aortic root and ascending aorta dimensions appear stable. Medications Administered Current Inpatient Medications Acetaminophen (Acetaminophen 325 Mg Tab) 650 mg PO Q4H PRN PRN Reason: Pain or Fever Stop: 02/23/24 22:06 Atorvastatin Calcium (Atorvastatin 40 Mg Tab) 40 mg PO QAM [facility] Stop: 02/24/24 08:59 Heparin Sodium/Dextrose (Heparin Sodium/Dextrose) 25,000 units in 500 mls @ 20 mls/hr IV .Q24H [facility]; Protocol Stop: 02/23/24 19:14 Last Titration: 01/25/24 03:20 Dose: 1,200 units/hr, 24 mls/hr Metoprolol Tartrate (Metoprolol Tartrate 1 Mg/Ml Vial) 5 mg IV Q6 PRN PRN Reason: Tachycardia HR>120 Stop: 02/23/24 22:06 Metoprolol Tartrate (Metoprolol Tartrate 25 Mg Tab) 25 mg PO Q6 [facility] Stop: 02/24/24 11:59 Pantoprazole Sodium (Pantoprazole 40 Mg Tab) 40 mg PO HS [facility] Stop: 02/23/24 22:49 Last Admin: 01/24/24 23:16 Dose: 40 mg Polyethylene Glycol (Polyethylene (Miralax) 17 Gm Pack) 17 gm PO DAILY PRN PRN Reason: Constipation Stop: 02/23/24 22:06
[2024-01-25] MEDS: ATORVASTATIN 40 MG TAB PO SCH (09:28)
[2024-01-25] MEDS: METOPROLOL TARTRATE 25 MG TAB PO ONE (09:32)
[2024-01-25 10:12] LABS: ANTI-Xa, UFH(UnfractionatedHep 0.37 IU/ml (0.3-0.7)
[2024-01-25] MEDS: METOPROLOL SUCC 50MG EXT REL TAB PO ONE (11:44)
[2024-01-25] MEDS ORDERED: METOPROLOL TARTRATE 25 MG TAB PO SCH (12:00)
--- NOTE | 2024-01-25 14:27 | Hospitalist Progress Note ---
Date of Service January 25, 2024 Assessment & Plan (1) Atrial fibrillation with RVR: (2) Headache: (3) CKD (chronic kidney disease), stage III: (4) Dyslipidemia: (5) Nonobstructive atherosclerosis of coronary artery: (6) Ascending aorta enlargement: (7) NAFLD (nonalcoholic fatty liver disease): Plan Mr. Swanson is a 53 year old male with PMH dyslipidemia, non-obstructive CAD, NAFLD, enlarged ascending thoracic aorta last measured 4.[address] imaging, CKD III presented to ER with c/o ESTRADA and palpitations since last night. #Atrial fibrillation with RVR EKG: atrial fibrillation RVR nonspecific ST changes Troponin: negative. TSH: 5.2. WBC: 12, H/H: 18.6/56 CXR: no infiltrate Remains in a fib, unclear duration ECHO with EF 50-55% [id number] score of 1-2 (HTN and mild CAD/aortic atherosclerosis) Transfer to eliquis BID NPO for possible cardioversion Consider ARB Will transition to eliquis contingent on coverage Continue metoprolol 50 xL BID #HLD 9-9.7% risk Start high dose statin #Acute Headache: History chronic ESTRADA's Followed with neurology in past and was diagnosed with primary exertional ESTRADA and migraine ESTRADA and advised to avoid medication overuse and attempt lifestyle modifications Last night describes ESTRADA worse than his typical daily ESTRADA Currently rates 2/10 on pain scale In ER CT head without acute intracranial abnormality #CKD (chronic kidney disease), stage III: Cr: 1.38, GFR 58. ( 12/26/2020: Cr: 1.4, GFR: 59) Monitor renal functions #Nonobstructive atherosclerosis of coronary artery: #Ascending aorta enlargement: Plan: Cardiac CT 05/10/2020: In the proximal LAD there is a small area of focal calcified plaque resulting in no significant luminal stenosis. In the mid LAD, there is an area of focal calcified plaque resulting in luminal stenosis of 20%. The left main, circumflex, and right coronary arteries are normal without evidence of atherosclerotic plaque or luminal stenosis. The right ventricular chamber size is dilated to a [id number] degree on qualitative assessment. The inte ratrial septum is intact without evidence of atrial septal defect. The aortic root and proximal ascending aorta are mildly dilated. Measurements:Aortic root at the level of the sinus of Valsalva: 42 x 41 x 39 mm. Aorta at the level the sinotubular junction: 33 x 37 mm. Consider ARB #NAFLD (nonalcoholic fatty liver disease): AST: 52, ALT: 128, Alk Phos: 87. (12/26/2020: AST: 52, ALT: 127, alk phos: 75, T. bili: 0.6) 08/03/14 abd: hepatic steatosis DVT Prophylaxis On IV Heparin Admit PCU Full Code as per discussion with pt Previously followed with [facility] PCP's, hasn't been seen for couple years. Admission and Anticipated Discharge Date Admission Date: January 24, 2024 Subjective NAEO reports headache much improved Denies any new concerns, states he never was able to feel symptoms like palpitations/SOB/ZELAYA prior to arrival Results & Data Results & Data Vital Signs (Past 12 Hours) Vital Signs Temp Pulse Pulse Resp BP Pulse Ox O2 Del Method 01/25/24 11:12 36.6 C 92 H 18 115/82 96 Room Air 01/25/24 09:19 Room Air 01/25/24 07:54 125 H 01/25/24 07:44 36.7 C 83 18 153/89 H 93 Room Air 01/25/24 03:10 36.8 C 63 20 110/80 93 Room Air Laboratory Results Short CBC 01/24/24 01/25/24 Range/Units 17:38 01:51 WBC 12.21 H 9.92 (4.8-10.8) K/ul Hgb 18.6 H 16.6 (14.0-18.0) g/dl Hct 56.4 H 48.6 (42.0-52.0) % Plt Count 250 196 (130-400) K/uL [facility] 01/24/24 01/25/24 17:38 01:51 Sodium 138 140 Potassium 3.8 4.0 Chloride 100 108 H Carbon Dioxide 31 25 BUN 11 12 Creatinine 1.38 1.16 Glucose 96 96 Calcium 9.7 8.9 Liver Function 01/24/24 01/25/24 Range/Units 17:38 01:51 Total Bilirubin 0.8 0.7 (0.2-1.0) mg/dl AST 52 H 39 (13-39) U/L ALT 128 H 98 H (7-52) U/L Alkaline Phosphatase 87 67 (34-104) U/L Albumin 4.7 3.7 (3.4-5.0) gm/dl Medications Administered Home Medications Medication Instructions Recorded Confirmed Last Taken omeprazole 20 mg PO HS 01/24/24 01/24/24 Unknown Active Medications Generic Name Dose Route Start Last Admin Trade Name Tana PRN Reason Stop Dose Admin Atorvastatin Calcium 40 mg 01/25/24 09:00 01/25/24 09:28 Atorvastatin 40 Mg Tab PO 02/24/24 08:59 40 mg QAM [facility]ALINI Administration Heparin Sodium/Dextrose 25,000 units in 500 mls @ 24 mls/hr 01/24/24 19:15 01/25/24 03:20 Heparin Sodium/Dextrose IV 02/23/24 19:14 1,200 units/hr .[id number] [facility]ALINI 24 mls/hr Titration Protocol 1,200 UNITS/HR Pantoprazole Sodium 40 mg 01/24/24 22:50 01/24/24 23:16 Pantoprazole 40 Mg Tab PO 02/23/24 22:49 40 mg HS [facility]INI Administration (2) Headache Headache type: unspecified
--- NOTE | 2024-01-25 16:47 | Electrocardiogram Report ---
Test Reason : Blood Pressure : */* mmHG Vent. Rate : 110 BPM Atrial Rate : 156 BPM P-R Int : * ms QRS Dur : 100 ms QT Int : 348 ms P-R-T Axes : * 9 -8 degrees QTcB Int : 470 ms Atrial fibrillation with rapid ventricular response Abnormal ECG When compared with ECG of 24-Jan-2024 17:35, (unconfirmed) Nonspecific T wave abnormality no longer evident in Lateral leads Confirmed by Wiley Cadet ([id number]) on 01/25/2024 4:47:11 PM Referred By: REFERRED SELF Confirmed By: Wiley Cadet
[2024-01-25] MEDS: APIXABAN 5 MG TABLET PO SCH (20:40)
[2024-01-25] MEDS: METOPROLOL SUCC 50MG EXT REL TAB PO SCH (20:40)
[2024-01-26 06:00] LABS: Hematocrit (blood only) 48.4 % (42.0-52.0); Hemoglobin 16.4 g/dl (14.0-18.0); Mean Corpuscular Hemoglobin 28.8 pg (25.0-34.0); Mean Corpuscular Hgb Conc 33.9 g/dL (32.0-36.0); Mean Corpuscular Volume 84.9 fL (80.0-100.0); Mean Platelet Volume 11.2 fL (9.4-12.4); Platelet Count 175 K/uL (130-400); RDW Coefficient of Variation 12.2 % (11.5-14.5); RDW Standard Deviation 37.7 fL (36.4-46.3)
[2024-01-26 06:18] LABS: BUN Creatinine Ratio 12.5 (10-20); Calcium 9.3 mg/dl (8.6-10.3); Creatinine Clr Calc Pharmacy 77.2 ml/min; Est GFR (African American) 59.8 ml/min; Est GFR (Non-African American) 51.6 ml/min; Phosphorus 3.5 mg/dl (2.5-4.9); Potassium 4.5 mmol/L (3.5-5.1)
--- NOTE | 2024-01-26 09:57 | Cardiology Progress Note ---
Date of Service January 26, 2024 Assessment & Plan (1) Atrial fibrillation with RVR: (2) Hypertensive urgency: (3) Ascending aorta enlargement: (4) Dyslipidemia: Plan 01/25/24 Patient admitted with palpitations, HTN diagnosed with Afib RVR. Duration unknown. At least 1-2 days RN TRAVELING, but possibly longer. HS troponin unremarkable. Echo with mild global hypokinesis with LVEF 50-55% (afib RVR during echo) Started on IV heparin for anticoagulation. [id number] score of 1-2 (HTN and mild CAD/aortic atherosclerosis). Will need transitioned to Eliquis 5 mg BID prior to discharge Metoprolol initiated upon arrival. Rates remain elevated this morning. Metoprolol succinate 50 mg twice perday Ongoing rate control strategy recommended for now and after 4 weeks of anticoagulation can attempt CV. However, if rates fail to improve today with titration of metoprolol, consider DARA/CV in the morning. Will make NPO BP trending downward with BB. May need additional antihypertensive therapy with HUY/ARB. Monitor. 01/26/24: Patient remains in persistent atrial fibrillation with RVR, despite titration of metoprolol yesterday. Symptomatic with minimal exertion. Options discussed with patient. Recommend proceeding with DARA/DCCV. risks/benefits discussed Patient agreeable. Will arrange for later this morning. Keep NPO. Patient just received morning meds at time of evaluation at 50 mg. His BP has greatly improved since admission. Mild renal insufficiency this morning with creatinine of 1.5. He would benefit from HUY/ARB for HTN and dilated aortic root, however with renal insufficiency will not initiate this morning. IV heparin transitioned to oral Eliquis 5 mg BID. Atorvastatin initiated given dyslipidemia. Would recommend repeat sleep med evaluation as outpatient. Further recommendations pending further discussion and evaluation with Dr. Thurston and response to DARA/DCCV. Case discussed with Dr. Thurston I spent a total of 35 minutes on the date of service in preparation, delivery, and documentation of the care provided to this patient, excluding any time spent in the performance of separately billed services. Ning Farrell PA-C Department of Cardiology, [facility] This chart was completed in part utilizing Speech Voice Recognition Software. Grammatical errors, random word insertions, pronoun errors, and incomplete sentences are an occasional consequence of this system due to software limitations, ambient noise, and hardware issues. Any formal questions or concerns about the content, text, or information contained within the body of this dictation should be directly addressed to the provider for clarification. Admission and Anticipated Discharge Date Admission Date: January 24, 2024 Supervising Physician Co-Signing Physician Notes Patient was seen and examined. Still remains tachycardic in atrial fibrillation despite increased beta-anthony therapy Discussed management recommended DARA guided cardioversion with procedure arranged Underwent DARA procedure uneventfully demonstrating no evidence of thrombus in the left atrial appendage normal left atrial size. LV systolic function normal Ascending aortic mildly enlarged Synchronized electrical cardioversion performed using 200 J biphasic shock with successful conversion to sinus rhythm EKG post procedure sinus rhythm with normal tracing Plan continue metoprolol succinate 50 mg p.o. daily Close clinical follow-up with cardiology post discharge Future goals include reassessment of potential sleep apnea Continued surveillance of dilated ascending aorta, hypertension Will reassess this afternoon and likely will be able to discharge to home later today Subjective Patient resting in bed. Reports feeling well at rest, but has SOB and palpitations with minimal ambulation to the restroom. No chest pain. No dizziness. BP has trended downward. Remains persistent afib with elevated rates despite titration of metoprolol. Review of Systems Review of Systems: All systems reviewed & are unremarkable except as noted in HPI & below Physical Exam Constitutional: WD/WN, vitals as above well developed and + obese; no acute distress Neck: + thick neck Respiratory: normal respiratory effort Auscultation: no crackles, no rales and no rhonchi Cardiovascular: Rate/Rhythm: + tachycardic and + irregularly irregular Heart Sounds: no murmur Vessels: no JVD Extremities: no edema Gastrointestinal (Abdomen): normal bowel sounds, soft, nontender, no hep atosplenomegaly Skin: no rashes, warm and dry Psychiatric: A+Ox3, euthymic affect Results & Data Vital Signs (Past 12 Hours) Vital Signs Temp Pulse Pulse Resp BP Pulse Ox O2 Del Method 01/26/24 08:30 103 H 01/26/24 08:03 36.9 C 103 H 18 111/78 94 Room Air 01/26/24 03:37 36.6 C 89 20 117/80 95 Room Air 01/25/24 22:52 36.6 C 114 H 18 114/83 93 Room Air 01/25/24 22:02 110 H Diagnostic Findings Telemetry reviewed: Persistent afib with rates ranging 95-120's at rest, increasing to 140's with minimal exertion EKG this morning, 01/26/24 reviewed: Atrial fibrillation with RVR at [address] changes Echo reviewed from today 01/25/24: Atrial fibrillation with elevated ventricular rates LV is normal in size Moderate concentric LVH Borderline global hypokinesis of the LV LVEF 50-55% LA is mildly dilated No significant valvular disease Borderline aortic root dilatation Medications Administered Current Inpatient Medications Acetaminophen (Acetaminophen 325 Mg Tab) 650 mg PO Q4H PRN PRN Reason: Pain or Fever Stop: 02/23/24 22:06 Apixaban (Apixaban 5 Mg Tablet) 5 mg PO BID [facility] Stop: 02/24/24 20:59 Last Admin: 01/26/24 08:54 Dose: 5 mg Atorvastatin Calcium (Atorvastatin 40 Mg Tab) 40 mg PO QAM [facility] Stop: 02/24/24 08:59 Last Admin: 01/25/24 09:28 Dose: 40 mg Metoprolol Succinate (Metoprolol Succ 50mg Ext Rel Tab) 50 mg PO BID [facility] Stop: 02/24/24 20:59 Last Admin: 01/26/24 08:54 Dose: 50 mg Metoprolol Tartrate (Metoprolol Tartrate 1 Mg/Ml Vial) 5 mg IV Q6 PRN PRN Reason: Tachycardia HR>120 Stop: 02/23/24 22:06 Pantoprazole Sodium (Pantoprazole 40 Mg Tab) 40 mg PO HS [facility] Stop: 02/23/24 22:49 Last Admin: 01/25/24 20:40 Dose: 40 mg Polyethylene Glycol (Polyethylene (Miralax) 17 Gm Pack) 17 gm PO DAILY PRN PRN Reason: Constipation Stop: 02/23/24 22:06
--- NOTE | 2024-01-26 10:10 | Anesthesiology Consultation ---
Date of Service January 26, 2024 Assessment & Plan Chart Review Chart Review: Acceptable Risk for Surgery ASA ASA3 Proposed Anesthesia Anesthesia Type: General Risk / Benefits Reviewed With: PT / POA / Parent / Guardian, Accepts Plan and Informed Consent Obtained History Surgery Operation Date: 01/26/24 10:00 Proposed Procedures p Cardioversion w/Anesthesia Sedation - Johnny Thurston MD s Transesophageal Echo - Johnny Thurston MD Height/Weight Height: 6 ft 2 in Weight: 119.6 kg Allergies Allergy/AdvReac Type Severity Reaction Status Date / Time naproxen [From Aleve] Allergy Intermediate mouth/finger/toes Verified 01/24/24 17:42 tingling, watery eyes Penicillins Allergy Unknown Unknown, Verified 01/24/24 17:42 childhood reaction Medications Home Medications Medication Instructions Recorded Confirmed Last Taken omeprazole 20 mg PO HS 01/24/24 01/24/24 Unknown apixaban 5 mg tablet 5 mg PO BID #30 tabs 01/25/24 Unknown Active Medications Generic Name Dose Route Start Last Admin Trade Name Houstonq PRN Reason Stop Dose Admin Apixaban 5 mg 01/25/24 21:00 01/26/24 08:54 Apixaban 5 Mg Tablet PO 02/24/24 20:59 5 mg BID SHALINI Administration Atorvastatin Calcium 40 mg 01/25/24 09:00 01/25/24 09:28 Atorvastatin 40 Mg Tab PO 02/24/24 08:59 40 mg QAM SHALINI Administration Metoprolol Succinate 50 mg 01/25/24 21:00 01/26/24 08:54 Metoprolol Succ 50mg Ext Rel Tab PO 02/24/24 20:59 50 mg BID SHALINI Administration Pantoprazole Sodium 40 mg 01/24/24 22:50 01/25/24 20:40 Pantoprazole 40 Mg Tab PO 02/23/24 22:49 40 mg HS SHALINI Administration NPO Date Last Intake of Fluids: 01/26/24 Time Last Intake of Fluids: 00:00 Date Last Intake of Solids: 01/26/24 Time Last Intake of Solids: 00:00 Past Medical History Medical History Fatty liver Encounter for pre-operative examination Paresthesia CKD (chronic kidney disease) stage III Obesity Chronic back pain neck, no ROM limitations GERD (gastroesophageal reflux disease) Exercise / Class Metabolic Activity II 4-5 Yardwork/Stairs/Walk up hill Past Family History Family History Father Family history of diabetes mellitus Past Surgical History Surgical History Neck mass LIPOMA REMOVED History of arthroscopy Past Anesthesia History No Hx of Anesthesia Complications History of PONV No Hx of PONV Social History Smoking Status: Never smoker Do You Dip or Chew Tobacco: No Hx Alcohol Use: No Hx Substance Use: No substance use type: does not use Review of Systems ROS Unobtainable: All systems reviewed & are unremarkable except as noted in HPI & below Physical Exam Vital Signs Last Vital Signs Temp 36.9 C 01/26/24 08:03 Pulse 103 H 01/26/24 08:30 Resp 18 01/26/24 08:03 BP 111/78 01/26/24 08:03 Pulse Ox 94 01/26/24 08:03 O2 Del Method Room Air 01/26/24 08:03 ENMT Thyromental Distance: > or= 3.5 Finger Breadths Mallampati Class: II Neck + thick neck Respiratory Auscultation: lungs clear to auscultation bilaterally Cardiovascular Rate/Rhythm: + tachycardic Psychiatric Orientation: alert and oriented x 3 Testing Laboratory Results 01/26/24 05:32 01/26/24 05:32 PT 11.2 Seconds (9.0-12.0) 01/24/24 17:38 INR 1.0 (0.9-1.1) 01/24/24 17:38 APTT 29 Seconds (21-31) 01/24/24 17:38
--- NOTE | 2024-01-26 10:38 | Cardioversion ---
Date of Service January 26, 2024 Electrical Cardioversion Rpt Electrical Cardioversion Report Procedure and risk. DARA guided synchronized electrical cardioversion explained in detail, informed consent obtained. Patient sedated via anesthesia consult with O2, HR BP endtidal CO2 monitor DARA completed without contraindications for cardioversion Synchronized electrical cardioversion performed using single 200J with successful conversion to sinus rhythm Patient aroused tolerated well
[2024-01-26] MEDS: LIDOCAINE 2% 2 ML VIAL/AMP(20MG/ML) INFIL ONE (11:00)
[2024-01-26] MEDS: PROPOFOL IV EMULSION 10 MG/ML 20 ML VIAL IV ONE (11:00)
--- NOTE | 2024-01-26 11:03 | Electrocardiogram Report ---
Test Reason : Blood Pressure : */* mmHG Vent. Rate : 118 BPM Atrial Rate : 131 BPM P-R Int : * ms QRS Dur : 102 ms QT Int : 350 ms P-R-T Axes : * 24 -24 degrees QTcB Int : 490 ms Atrial fibrillation with rapid ventricular response Abnormal ECG When compared with ECG of 25-Jan-2024 05:51, No significant change was found Confirmed by Wiley Cadet ([id number]) on 01/26/2024 11:03:22 AM Referred By: REFERRED SELF Confirmed By: Wiley Cadet
--- NOTE | 2024-01-26 11:07 | Electrocardiogram Report ---
Test Reason : Blood Pressure : */* mmHG Vent. Rate : 85 BPM Atrial Rate : 85 BPM P-R Int : 130 ms QRS Dur : 98 ms QT Int : 386 ms P-R-T Axes : -10 -2 1 degrees QTcB Int : 459 ms Poor data quality, interpretation may be adversely affected Normal sinus rhythm Normal ECG When compared with ECG of 26-Jan-2024 05:41, (unconfirmed) Sinus rhythm has replaced Atrial fibrillation Confirmed by Wiley Cadet ([id number]) on 01/26/2024 11:06:37 AM Referred By: REFERRED SELF Confirmed By: Wiley Cadet
[2024-01-26 11:09] VITALS: TEMP 98.1
--- NOTE | 2024-01-26 12:26 | Anesthesiology Progress Note ---
Date of Service January 26, 2024 Anesthesia Post Procedure Vital Signs Vital Signs: Temp Pulse Pulse Resp BP Pulse Ox O2 Del Method 01/26/24 11:45 68 18 115/80 93 Room Air 01/26/24 11:30 69 18 114/78 93 Room Air 01/26/24 11:05 36.7 C 67 16 114/79 95 Room Air 01/26/24 10:50 76 16 107/79 94 Room Air 01/26/24 10:35 76 16 105/82 94 Room Air 01/26/24 10:14 140 H 16 134/109 H 01/26/24 08:30 103 H 01/26/24 08:03 36.9 C 103 H 18 111/78 94 Room Air 01/26/24 03:37 36.6 C 89 20 117/80 95 Room Air 01/25/24 22:52 36.6 C 114 H 18 114/83 93 Room Air 01/25/24 22:02 110 H 01/25/24 20:37 109 H 116/78 01/25/24 20:00 Room Air 01/25/24 19:14 36.5 C 98 H 18 117/76 94 Room Air 01/25/24 18:19 126/74 01/25/24 16:11 139 H 01/25/24 16:02 36.9 C 113 H 18 92/64 L 95 Room Air Pain Intensity Head: Pain Intensity: 6 Transfer of Care Handoff Completed per policy Notes Mental Status: alert / awake / arousable and participated in evaluation Nausea / Vomiting: adequately controlled Pain: adequately controlled Airway Patency, RR, SpO2: stable & adequate BP & HR: stable & adequate Hydration State: stable & adequate Anesthetic Complications: no major complications apparent and Pt Satisfied with anesthetic care
[2024-01-26 12:49] VITALS: BP 120/89; RESP 20; O2SAT 94
--- NOTE | 2024-01-26 14:55 | Discharge Summary ---
Discharge Summary Date of Service January 26, 2024 Principal Dx & Hospital Course #1 = Principal Diagnosis (1) Atrial fibrillation with RVR: (2) Headache: (3) CKD (chronic kidney disease), stage III: (4) Dyslipidemia: (5) Nonobstructive atherosclerosis of coronary artery: (6) Ascending aorta enlargement: (7) NAFLD (nonalcoholic fatty liver disease): Plan Mr. Swanson is a 53 year old male with PMH dyslipidemia, non-obstructive CAD, NAFLD, enlarged ascending thoracic aorta last measured 4.[address] imaging, CKD III presented to ER with c/o ESTRADA and palpitations 01/22. Patient noted heart rate felt irregular. Patient presented to ED in a fib RVR. Patient started on metoprolol, but rates/rhythm persisted. Patient underwent cardioversion 01/25 with conversion to NSR. Patient continued on eliquis and metoprolol. On day of discharge, patient was ambulating, eating well, and without acute concerns. Follow up arrianged with cardiology and pcp. #Atrial fibrillation with RVR EKG: atrial fibrillation RVR nonspecific ST changes Troponin: negative. TSH: 5.2. WBC: 12, H/H: 18.6/56 CXR: no infiltrate ECHO with EF 50-55% [id number] score of 1-2 (HTN and mild CAD/aortic atherosclerosis) s/p cardioversion to NSR 01/25 Continue Eliquis BID continue metoprolol XL 50mg BID #HLD 9-9.7% risk Start high dose statin #Acute Headache: resolved History chronic ESTRADA's Followed with neurology in past and was diagnosed with primary exertional ESTRADA and migraine ESTRADA and advised to avoid medication overuse and attempt lifestyle modifications Last night describes ESTRADA worse than his typical daily ESTRADA Currently rates 2/10 on pain scale In ER CT head without acute intracranial abnormality #CKD (chronic kidney disease), stage III: Cr: 1.38, GFR 58. ( 12/26/2020: Cr: 1.4, GFR: 59) Monitor renal functions #Nonobstructive atherosclerosis of coronary artery: #Ascending aorta enlargement: Cardiac CT 05/10/2020: In the proximal LAD there is a small area of focal calcified plaque resulting in no significant luminal stenosis. In the mid LAD, there is an area of focal calcified plaque resulting in luminal stenosis of 20%. The left main, circumflex, and right coronary arteries are normal without evidence of atheros clerotic plaque or luminal stenosis. The right ventricular chamber size is dilated to a [id number] degree on qualitative assessment. The interatrial septum is intact without evidence of atrial septal defect. The aortic root and proximal ascending aorta are mildly dilated. Measurements:Aortic root at the level of the sinus of Valsalva: 42 x 41 x 39 mm. Aorta at the level the sinotubular junction: 33 x 37 mm. Consider ARB #NAFLD (nonalcoholic fatty liver disease): AST: 52, ALT: 128, Alk Phos: 87. (12/26/2020: AST: 52, ALT: 127, alk phos: 75, T. bili: 0.6) 08/03/14 abd: hepatic steatosis encourage lifetyle modifications Notes For Next Care Provider If hypertensive at follow up, consider ARB addition Ascending aorta enlargement on imaging, will need routine follow up and tight BP control Medication Changes From Visit Continue Eliquis BID continue metoprolol XL 50mg BID continue atorvastatin 40mg daily Admission HPI Per Admitting Provider Patient is 53 year old male with PMH dyslipidemia, non-obstructive CAD, NAFLD, enlarged ascending thoracic aorta last measured 4.[address] imaging, CKD III presented to ER with c/o ESTRADA and palpitations since last night. History obt ained from patient and patient's and outpatient chart review. Patient states last night around 19:00 started with ESTRADA. He had some nausea and dry heaving last night. Last night felt ESTRADA worse than his usual ESTRADA's but states he didn't think much of it as he will sometimes have more severe ESTRADA's. Has history recurrent ESTRADA's for past 4 years. He states has almost daily ESTRADA that he describes as mild usually. Doesn't take anything for them. Sometimes has floaters. Sometimes he has nausea with the ESTRADA's. Had followed up with neurology in past with testing and was diagnosed with primary exertional ESTRADA and migraine ESTRADA. 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 He denies neck pain. Patient reports when went to bed last night he thought he could feel his heart beating but didn't really bother him much. Today ESTRADA continued and he felt some palpitations and his took his pulse and noticed it was irregular so came to ER for evaluation. Had semi solid BM last night. States has soda or tea daily. But yesterday had 5 caffeinated drinks. Denies ETOH use. Denies dizziness, lightheadedness, syncope, CP, SOB, neck pain, fever/chills, diaphoresis, vomiting, syncope, vision changes, CP, SOB, orthopnea, cough, sore throat, rhinorrhea, abdominal pain, paresthesias, weakness, extremity edema, rashes, urinary symptoms. Admission Exam Per Admitting Provider Vitals signs as noted above General Appearance: Well-built, nourished, no apparent distress Head: normocephalic, Atraumatic Eyes: normal inspection, EOMI Neck: supple, Trachea midline, no neck rigidity Respiratory/Chest: Normal breath sounds, CTA, No accessory muscle use Cardiovascular: Irregularly irregular, tachycardia, No murmur Abdomen/GI:Soft, Non tender, protuberant, bowel sounds present Extremities/Musculoskeletal:normal inspection, trace pedal edema Neurologic/Psych:AAOX3, grossly no focal neurological deficits Skin: normal color, warm Discharge Exam Constitutional WD/WN, vitals as above Respiratory normal respiratory effort, lungs clear to auscultation Cardiovascular RRR, no murmur, no edema Gastrointestinal (Abdomen) normal bowel sounds, soft, nontender, no hepatosplenomegaly Musculoskeletal no cyanosis or clubbing, extremities motor strength 5/5 Updated Medication List Medication Instructions Recorded Confirmed Type omeprazole 20 mg PO HS 01/24/24 01/24/24 History apixaban 5 mg tablet 5 mg PO BID #30 tabs 01/25/24 Rx atorvastatin 40 mg tablet 40 mg PO QAM 30 days #30 tabs 01/26/24 Rx metoprolol succinate 50 mg 50 mg PO BID 30 days #60 tabs 01/26/24 Rx tablet,extended release 24 hr Hospital Stay Data Consultations 01/24/24 18:58 ED Decision to Admit Stat 01/24/24 22:07 Consult Cardiology Routine Procedures Performed Operation Date: 01/26/24 10:00 Actual Procedures p Echo Transesophageal - Johnny Thurston MD s Cardioversion - Johnny Thurston MD Diagnostic Imagining Performed 01/24/24 17:50 CT head/brain wo con Stat Pending Results Patient Have Any Pending Studies at Discharge: No Discharge Instructions Given to Patient (Per Discharging Provider) You were admitted for headache but found to be in an irregular rhythm called atrial fibrillation. You were started on medications and underwent cardioversion with successful conversion to normal sinus (normal heart rate) You will need to follow up closely with primary care and with Cardiology -Start Metoprolol XL 50mg two times a day to help keep heart rates stable -Start Atorvastatin 40mg daily for cholesterol -Start Eliquis 5mg two times a day to prevent clot formation Total Time Total Time Spent Total Time Spent (In Minutes): 45
[2024-01-26 15:08] VITALS: PULSE 74
== END 2024-01-26 16:05 | disposition home or self-care (01) | DRG 310 ==
LOC: ED 17:22 → SUATTDRO 19:16 → 4W 19:16